=== PATIENT | male | born 1960 | race Two or more races ===

== ENCOUNTER 2022-06-10 04:07 | Inpatient (IN) | payer OTHER ==
[~2022-06-10] VITALS: Ht 177.8 cm; Wt 104.3 kg
--- NOTE | 2022-06-10 04:20 | NUR ---
noemi, from home, c/o high bp 180/100, and chest pressure non-radiating denies pain only discomfort
--- NOTE | 2022-06-10 04:58 | NUR ---
registered dietetic technician at bedside.
--- NOTE | 2022-06-10 05:00 | NUR ---
Dr. Jansen at bedside.
--- NOTE | 2022-06-10 05:03 | NUR ---
Saline lock at L hand G20. Blood drawn and sent to lab.
[2022-06-10] MEDS ORDERED: ASPIRIN EC 325 MG TABLET.DR PO ONE ×2 (05:29→05:30)
[2022-06-10 05:37] LABS: BASOPHILS % (AUTO) 0.6 % (0.0-2.0); EOSINOPHILS % (AUTO) 4.3 % (0.0-6.0); HEMATOCRIT 41 % (39-51); LYMPHOCYTES % (AUTO) 29.8 % (20.0-44.0); MEAN CORPUSCULAR HGB CONC 34 g/dl (31.0-36.0); MEAN CORPUSCULAR VOLUME 92 fL (80-96); MONOCYTES # (AUTO) 0.8 K/uL (0.1-1.30); MONOCYTES % (AUTO) 11.4 % (2.0-12.0); NEUTROPHILS # (AUTO) 3.6 K/uL (1.8-8.9); NEUTROPHILS % (AUTO) 53.9 % (43.0-81.0); PLATELET COUNT (AUTO) 236 K/uL (150-450); RED BLOOD CELL COUNT(AUTO) 4.43 MIL/uL (4.5-6.0); WHITE BLOOD COUNT (AUTO) 6.6 K/uL (4.3-11.0)
[2022-06-10 05:51] LABS: CALCIUM, SERUM 9.7 mg/dL (8.5-10.1); CARBON DIOXIDE 27 mmol/L (21-32); CHLORIDE 104 mmol/L (98-107); CREATININE 1.1 mg/dL (0.6-1.3); GLUCOSE 124 mg/dL (74-106); POTASSIUM 3.8 mmol/L (3.5-5.1); SODIUM SERUM 140 mmol/L (136-145); UREA NITROGEN, BLOOD 19 mg/dL (7-18)
[2022-06-10 08:00] VITALS: BP 173/88
--- NOTE | 2022-06-10 08:25 | NUR ---
BED 107. ADMITTING MADE AWARE.
--- NOTE | 2022-06-10 08:33 | NUR ---
NURSE DELORES WILL CALL TO GET REPORT
[2022-06-10] MEDS ORDERED: BACL10TA PO (08:55)
[2022-06-10] MEDS ORDERED: AMLO-212 PO (08:55)
[2022-06-10] MEDS ORDERED: TRAZ-182 PO (08:55)
--- NOTE | 2022-06-10 08:57 | NUR ---
REPORT GIVEN TO DELORES RYAN
[2022-06-10] MEDS ORDERED: Z GUARD REMEDY 4 OZ OINT TP PRN (10:00)
[2022-06-10] MEDS ORDERED: ONDANSETRON HCL/PF 4 MG/2 ML VIAL IVP PRN (10:00)
[2022-06-10] MEDS ORDERED: ZOLPIDEM TARTRATE 5 MG TABLET PO PRN (10:00)
[2022-06-10] MEDS ORDERED: MAG HYDROX/AL HYDROX/SIMETH 30 ML UDC PO PRN (10:00)
[2022-06-10] MEDS ORDERED: BACLOFEN (10 MG) 10 MG TABLET PO PRN (10:00)
[2022-06-10] MEDS ORDERED: MORPHINE SULFATE INJ 2 MG/ML DISP.SYRIN IV PRN (10:00)
[2022-06-10] MEDS ORDERED: MAGNESIUM HYDROXIDE 30 ML UDC PO PRN (10:00)
--- NOTE | 2022-06-10 10:00 | NUR ---
SCREW MACHINE OPERATOR SINGLE SPINDLE NOTE PT IS ALERT AND ORIENTED X4. PT IS VERBALLY REPSONSIVE AND ABLE TO MAKE NEEDS KNOWN. PT HAS LEFT IV. IV INTACT, PATENT AND FLUSHING WELL. PT IS ON TELE MONITOR SINUS RHYTM. PT IS NOT IN ANY FORM OF PAIN OR DISCOMFORT NOTED AT THIS TIME. PT IS AMBULATORY AND INDEPENDENT. ALL SAFETY MEASURES IN PLACE PER HOSPITAL PROTOCOL.
[2022-06-10] MEDS ORDERED: CLONIDINE HCL 0.1 MG TABLET PO PRN (10:30)
[2022-06-10] MEDS ORDERED: NITROGLYCERIN 0.4 MG/TAB BOTTLE MC PRN (10:30)
[2022-06-10] MEDS: ENOXAPARIN SODIUM 40 MG/0.4 ML DISP.SYRIN SQ SCH (10:50)
--- NOTE | 2022-06-10 11:13 | NUR ---
RN NOTE RECEIVED VERBAL ORDER FROM FOR CHEST PAIN TO GIVE NITROGYLCERIN PRN. PT SAID MEDICATION NOT EFFECTIVE
[2022-06-10 13:00] VITALS: BP 130/78
[2022-06-10] MEDS ORDERED: CT SWABBABLE VALVE TRANS SET 1 EA INFUS.SET MC ONE (15:13)
[2022-06-10] MEDS ORDERED: IV NS 0.9% 250 ML IV ONE (15:13)
[2022-06-10] MEDS ORDERED: IOHEXOL-350 100 ML VIAL IV ONE (15:13)
[2022-06-10] MEDS ORDERED: METOPROLOL TARTRATE INJ 5 MG/5 ML AMPUL ONE ×2 (15:24→15:34)
[2022-06-10] MEDS ORDERED: NITROGLYCERIN 4.9 GM SPRAY ONE (15:25)
[2022-06-10 17:00] VITALS: BP 123/78
--- NOTE | 2022-06-10 19:37 | NUR ---
SUBSTANCE ABUSE NURSE CLOSING NOTE PT IS ALERT AND ORIENTED X4. PT IS VERBALLY RESPONSIVE AND ABLE TO MAKE NEEDS KNOWN. PT HAS LEFT AC 18 GAUGE. IV INTACT, PATENT AND FLUSHING WELL. PT IS ON TELE MONITOR SINUS RHYTHM. PT IS NOT IN ANY FORM OF PAIN OR DISCOMFORT NOTED AT THIS TIME. PT IS AMBULATORY AND INDEPENDENT. ALL SAFETY MEASURES IN PLACE PER HOSPITAL PROTOCOL.
[2022-06-10 21:00] VITALS: BP 146/87
[2022-06-10] MEDS: TRAZODONE 50 MG TABLET PO SCH (21:25)
[2022-06-11 01:00] VITALS: BP 137/84
[2022-06-11 05:00] VITALS: BP 135/82
[2022-06-11 06:08] LABS: BASOPHILS # (AUTO) 0.1 K/uL (0.0-0.2); BASOPHILS % (AUTO) 0.9 % (0.0-2.0); EOSINOPHILS % (AUTO) 4.9 % (0.0-6.0); HEMATOCRIT 43 % (39-51); HEMOGLOBIN 14.4 g/dL (13.5-17.5); LYMPHOCYTES # (AUTO) 2.4 K/uL (0.8-4.8); LYMPHOCYTES % (AUTO) 35.4 % (20.0-44.0); MEAN CORPUSCULAR HGB CONC 34 g/dl (31.0-36.0); MEAN CORPUSCULAR VOLUME 93 fL (80-96); MONOCYTES # (AUTO) 0.7 K/uL (0.1-1.30); MONOCYTES % (AUTO) 10.8 % (2.0-12.0); NEUTROPHILS # (AUTO) 3.2 K/uL (1.8-8.9); PLATELET COUNT (AUTO) 235 K/uL (150-450); WHITE BLOOD COUNT (AUTO) 6.7 K/uL (4.3-11.0)
[2022-06-11 06:32] LABS: CALCIUM, SERUM 9.8 mg/dL (8.5-10.1); CREATININE 1.2 mg/dL (0.6-1.3); MAGNESIUM 1.9 mg/dL (1.8-2.4); POTASSIUM 4.1 mmol/L (3.5-5.1)
--- NOTE | 2022-06-11 07:30 | NUR ---
PRINTING ASSISTANT AM NOTE RECEIVED PATIENT IN BED, ASLEEP, EASILY ROUSES TO NAME AND TOUCH. ALERT AND ORIENTED X 4. AFEBRILE, ABLE TO MAKE NEEDS KNOWN. ROOM AIR. O2 SAT 95%. RESPIRATION UNLABORED. NO ACUTE DISTRESS. SR HR 61 ON MONITOR. DENIES PAIN/DISCOMFORT. IV ACCESS R HAND G20 SL, FLUSHES WELL, SITE CLEAR. NO SKIN ISSUES. AMBULATORY BRP. SAFETY MEASURES IN PLACE. KEPT BED IN LOCKED AND IN LOW POSITION. SIDE RAILS UP X2. ADVISED TO USE THE CALL LIGHT WHEN IN NEED OF ASSISTANCE. POC DISCUSSED. VERBALIZED UNDERSTANDING. WILL CONT TO MONITOR.
[2022-06-11] MEDS: PANTOPRAZOLE 40 MG TABLET.DR PO SCH (07:41)
[2022-06-11] MEDS: ACETAMINOPHEN 325 MG TABLET PO PRN ×2 (07:50→21:42)
[2022-06-11] MEDS: AMLODIPINE BESYLATE 5 MG TABLET PO SCH (08:36)
[2022-06-11 09:00] VITALS: BP 139/87
[2022-06-11] MEDS: ENOXAPARIN SODIUM 40 MG/0.4 ML DISP.SYRIN SQ SCH (09:27)
--- NOTE | 2022-06-11 09:30 | NUR ---
RN NOTES DUE MEDS GIVEN
[2022-06-11] MEDS: ASPIRIN 81 MG TAB.CHEW PO SCH (11:54)
[2022-06-11] MEDS: ATORVASTATIN 40 MG TABLET PO SCH ×2 (11:54→21:39)
[2022-06-11 13:00] VITALS: BP 125/78
--- NOTE | 2022-06-11 16:11 | NUR ---
COOKER CHIP NOTES Patient for transfer to [facility] tomorrow for Angiogram and Rotational Atherectomy at 1430. Ambulance machine operator picker to be arranged by case management at 1130 NPO except meds post midnight Hold Vera Call in for report at 1000 AM at [phone]
[2022-06-11 17:00] VITALS: BP 138/78
--- NOTE | 2022-06-11 18:36 | NUR ---
DATA CONVERSION OPERATOR CLOSING NOTE PATIENT IN BED, RESTING. ALERT AND ORIENTED X 4. AFEBRILE, ABLE TO MAKE NEEDS KNOWN. ROOM AIR. O2 SAT 96%. RESPIRATION UNLABORED. NO ACUTE DISTRESS. SR HR 68 ON MONITOR. DENIES PAIN/DISCOMFORT. IV ACCESS R HAND G20 SL, FLUSHES WELL, SITE CLEAR. NO SKIN ISSUES. AMBULATORY BRP. SAFETY MEASURES IN PLACE. KEPT BED IN LOCKED AND IN LOW POSITION. SIDE RAILS UP X2. ADVISED TO USE THE CALL LIGHT WHEN IN NEED OF ASSISTANCE. POC DISCUSSED. VERBALIZED UNDERSTANDING. ALL NEEDS MET AT THIS TIME. WILL ENDORSE TO NEXT SHIFT FOR ANH. NPO EXCEPT MEDS POST MIDNIGHT. PATIENT FOR FILLING STATION LABORER AT 1130 AM TOMORROW BY AMBULANCE TO TRANSPORT TO [facility] FOR PROCEDURE. PATIENT TO COME BACK TO [facility] POST PROCEDURE IS UNEVENTFUL.
--- NOTE | 2022-06-11 19:45 | NUR ---
TELE1 RN NOTES RECEIVED ON BED A/O 4,BREATHING EASY NO SOB,DENIES CHEST DISCOMFORTS.SALINE LOCK RIGHT HAND INTACT AND PATENT.INSTRUCTED NPO EXCEPT MEDS POST MIDNIGHT,GOING TO [facility] AT 1130AM FOR CTA POSSIBLE ANGIOGRAM,ROTATIONAL ATHERECTOMY BY DR ANDRES, PATIENT AWARE.CALL LIGHT IN REACH,NEEDS ANTICIPATED.
[2022-06-11 21:00] VITALS: BP 144/74
[2022-06-11] MEDS: TRAZODONE 50 MG TABLET PO SCH (21:39)
--- NOTE | 2022-06-11 21:42 | NUR ---
TELE1 RN NOTES C/O OF HEADACHE,TYLENOL 650MG PO GIVEN ORDERED FOR MILD PAIN
[2022-06-12 01:00] VITALS: BP 120/72
[2022-06-12 05:00] VITALS: BP 121/77
--- NOTE | 2022-06-12 06:42 | NUR ---
TELE1 RN NOTES LAYING BED,FAIRLY RESTED.KEPT NPO EXCEPT MEDS POST MIDNIGHT.PAPER WORK READY FOR TRANSFER TO [facility].IN NO ACUTE DISTRESS.BLOOD PRESSURE WITH IN NORMAL LIMITS.
--- NOTE | 2022-06-12 07:35 | NUR ---
RETRIEVAL SPECIALIST OPEN NOTE PATIENT IN BED, RESTING. ALERT AND ORIENTED X 4. AFEBRILE, ABLE TO MAKE NEEDS KNOWN. ROOM AIR. O2 SAT 96%. RESPIRATION UNLABORED. NO ACUTE DISTRESS. SR HR 67 ON MONITOR. DENIES PAIN/DISCOMFORT. IV ACCESS R HAND G20 SL, FLUSHES WELL, SITE CLEAR. NO SKIN ISSUES. AMBULATORY BRP. SAFETY MEASURES IN PLACE. KEPT BED IN LOCKED AND IN LOW POSITION. SIDE RAILS UP X2. ADVISED TO USE THE CALL LIGHT WHEN IN NEED OF ASSISTANCE. POC DISCUSSED. VERBALIZED UNDERSTANDING. ALL NEEDS MET AT THIS TIME. PATIENT IS NPO EXCEPT MEDS POST MIDNIGHT DUE TO GOING TO BE PICKED UP AT 1130 AM BY AMBULANCE TO TRANSPORT TO [facility] FOR PROCEDURE. PATIENT WILL TO COME BACK TO [facility] POST PROCEDURE ID [id number].
[2022-06-12] MEDS: PANTOPRAZOLE 40 MG TABLET.DR PO SCH (07:58)
[2022-06-12 09:00] VITALS: BP 131/80
[2022-06-12] MEDS: ASPIRIN 81 MG TAB.CHEW PO SCH (09:00)
[2022-06-12] MEDS: AMLODIPINE BESYLATE 5 MG TABLET PO SCH (09:00)
--- NOTE | 2022-06-12 09:23 | NUR ---
RN NOTE ASPIRIN AND NORVASC WASN'T ADMINISTERED DUE TO PATIENT IS SCEDULED FOR ANGIOGRAM TODAY AT 11 , AND BP 130/75
--- NOTE | 2022-06-12 18:54 | NUR ---
RN NOTE PATIENT WAS BROUGHT BACK FROM [facility] . REPORT RECEIVED ; PATIENT UNDERWENT CARDIO ANGIOGRAM , RIGHT FEMORAL SIDE COVERED WITH DRESSING .LAST BP 1`56/76 , HR 87 , ON ROOM AIR , RESP 19 , WILL BE BACK TO THE [facility] AFTER 7 PM
--- NOTE | 2022-06-12 20:21 | NUR ---
RN NOTE PT CAME BACK FROM [facility] S/P CORONARY ANGIOGRAM. PT IS A/O X 4, AMBULATORY AND IN STABLE CONDITION. PT DENIES ANY PAIN, NO SOB. BREATHING IS EVEN AND UNLABORED. IV ACCESS ON LFA #20g, PATENT AND INTACT. ALL SAFETY MEASURES IN PLACE: BED LOCKED IN LOW POSITION, SR UP 2, CALL LIGHT WITHIN REACH. WILL CONTINUE TO MONITOR PT.
[2022-06-12 21:00] VITALS: BP 150/94
[2022-06-12] MEDS: TRAZODONE 50 MG TABLET PO SCH (21:02)
[2022-06-12] MEDS: ATORVASTATIN 40 MG TABLET PO SCH (21:02)
[2022-06-12 21:34] VITALS: BP 150/94
[2022-06-13 00:53] VITALS: BP 135/83
[2022-06-13 01:00] VITALS: BP 135/83
[2022-06-13 05:00] VITALS: BP 134/84
[2022-06-13 05:48] VITALS: BP 134/84
--- NOTE | 2022-06-13 06:42 | NUR ---
RN NOTE NO SIGNIFICANT CHANGE T/O THE NIGHT. ALL DUE MEDS GIVEN. NEEDS MET. WILL ENDORSE TO AM SHIFT NURSE FOR ANH.
--- NOTE | 2022-06-13 07:05 | NUR ---
RN OPENING NOTE PATIENT IN BED, RESTING. ALERT AND ORIENTED X 4. AFEBRILE, ABLE TO MAKE NEEDS KNOWN. ROOM AIR. O2 SAT 97%. RESPIRATION UNLABORED. NO ACUTE DISTRESS. DENIES PAIN/DISCOMFORT. IV ACCESS R HAND G20 SL, FLUSHES WELL, SITE CLEAR. NO SKIN ISSUES. AMBULATORY BRP. SAFETY MEASURES IN PLACE. KEPT BED IN LOCKED AND IN LOW POSITION. SIDE RAILS UP X2. ADVISED TO USE THE CALL LIGHT WHEN IN NEED OF ASSISTANCE.
[2022-06-13] MEDS: PANTOPRAZOLE 40 MG TABLET.DR PO SCH (07:30)
[2022-06-13 09:00] VITALS: BP 152/94
[2022-06-13] MEDS: ASPIRIN 81 MG TAB.CHEW PO SCH (09:17)
[2022-06-13] MEDS: AMLODIPINE BESYLATE 5 MG TABLET PO SCH (09:17)
[2022-06-13] MEDS ORDERED: ATOR40TA PO (09:51)
[2022-06-13] MEDS ORDERED: ASPI-1169 PO (09:51)
[2022-06-13 13:00] VITALS: BP 129/82
[2022-06-13] MEDS ORDERED: CLOP75TA15 PO (17:17)
== END 2022-06-13 15:30 | disposition home or self-care (01) | DRG 303 ==
LOC: ER 04:09 → TELE1 08:55
PROVIDERS: ADMIT Internal Medicine; ATTEND Internal Medicine
DX: I25.110 Atherosclerotic heart disease of native coronary artery with unstable angina pectoris (principal); I16.0 Hypertensive urgency; F32.9 Major depressive disorder, single episode, unspecified; G89.29 Other chronic pain; I10 Essential (primary) hypertension; F41.9 Anxiety disorder, unspecified; E66.9 Obesity, unspecified; F17.290 Nicotine dependence, other tobacco product, uncomplicated; Z68.33 Body mass index [BMI] 33.0-33.9, adult; I25.41 Coronary artery aneurysm
CPT/HCPCS: 36415; 71045-TC; 75574; 80048-TC; 83735-TC; 84100-TC; 84484-TC; 85025-TC; 87081-TC; 93307-TC; C9803; G0378; J1650; J3490; J7050; Q9967

== ENCOUNTER 2023-08-23 19:47 | Inpatient (IN) | payer OTHER ==
[~2023-08-23] VITALS: Ht 177.8 cm; Wt 101.6 kg
[~2023-08-23 19:47] MED LIST: AMLO-212 PO; ASPI-1169 PO; ATOR40TA PO; BACL10TA PO; CLOP75TA15 PO; TRAZ-182 PO
[2023-08-23] MEDS ORDERED: ONDANSETRON HCL/PF 4 MG/2 ML VIAL ONE (20:28)
[2023-08-23] MEDS ORDERED: MORPHINE SULFATE INJ 4 MG/ML DISP.SYRIN ONE (20:28)
[2023-08-23 20:48] LABS: BASOPHILS # (AUTO) 0.1 K/uL (0.0-0.2); BASOPHILS % (AUTO) 0.4 % (0.0-2.0); EOSINOPHILS % (AUTO) 0.1 % (0.0-6.0); HEMATOCRIT 42 % (39-51); HEMOGLOBIN 14.5 g/dL (13.5-17.5); LYMPHOCYTES # (AUTO) 1.2 K/uL (0.8-4.8); MEAN CORPUSCULAR HEMOGLOBIN 32 PG (26.0-33.0); MEAN CORPUSCULAR HGB CONC 34 g/dl (31.0-36.0); MEAN CORPUSCULAR VOLUME 93 fL (80-96); MONOCYTES # (AUTO) 1.1 K/uL (0.1-1.30); MONOCYTES % (AUTO) 6.1 % (2.0-12.0); NEUTROPHILS # (AUTO) 15.4 K/uL (1.8-8.9); NEUTROPHILS % (AUTO) 86.4 % (43.0-81.0); PLATELET COUNT (AUTO) 254 K/uL (150-450); RED BLOOD CELL COUNT(AUTO) 4.53 MIL/uL (4.5-6.0); RED CELL DISTRIBUTION WIDTH 12.9 % (11.5-15.0); WHITE BLOOD COUNT (AUTO) 17.8 K/uL (4.3-11.0)
[2023-08-23] MEDS: ONDANSETRON HCL/PF 4 MG/2 ML VIAL IVP ONE (21:20)
[2023-08-23] MEDS: IV NS 0.9% 1,000 ML BAG IV ONE (21:20)
[2023-08-23] MEDS: MORPHINE SULFATE INJ 2 MG/ML DISP.SYRIN IV ONE (21:20)
[2023-08-23 21:35] LABS: ALBUMIN 3.7 g/dL (3.4-5.0); BILIRUBIN,DIRECT 0.4 mg/dL (0.0-0.2); BILIRUBIN,TOTAL 1.7 mg/dL (0.2-1.0); CALCIUM, SERUM 8.7 mg/dL (8.5-10.1); CREATININE 1.2 mg/dL (0.6-1.3); POTASSIUM 3.9 mmol/L (3.5-5.1); TOTAL PROTEIN, SERUM 6.9 g/dL (6.4-8.2)
[2023-08-23] MEDS ORDERED: CT SWABBABLE VALVE TRANS SET 1 EA INFUS.SET MC ONE (21:53)
[2023-08-23] MEDS ORDERED: IV NS 0.9% 250 ML IV ONE (21:53)
[2023-08-23] MEDS ORDERED: IOHEXOL-300 100 ML VIAL IV ONE (21:53)
[2023-08-23] MEDS ORDERED: PIPERACI/TAZO 3.375GM/D5W 50ML PB IV ONE (21:58)
[2023-08-23] MEDS ORDERED: PIPERACILLIN /TAZOBACTAM 3.375 G in IV D5W 50 ML IV ONE (22:00)
[2023-08-23] MEDS: PIPERACILLIN /TAZOBACTAM 3.375 G in IV D5W 50 ML IV ONE (22:03)
[2023-08-23 22:37] LABS: LACTIC ACID 2.6 mmol/L (0.4-2.0)
[2023-08-23] MEDS ORDERED: METRONIDAZOLE 500MG/ NS 100ML 100 ML IV ONE (23:47)
[2023-08-23] MEDS: FLAGYL/NS RTU 500 MG/100 ML PIGGYBACK IV ONE (23:51)
[2023-08-24] MEDS ORDERED: ACETAMINOPHEN 325 MG TABLET PO PRN (04:30)
[2023-08-24] MEDS ORDERED: ONDANSETRON HCL/PF 4 MG/2 ML VIAL IVP PRN (04:30)
[2023-08-24] MEDS ORDERED: MORPHINE SULFATE INJ 2 MG/ML DISP.SYRIN IV PRN (04:30)
[2023-08-24] MEDS ORDERED: Z GUARD REMEDY 4 OZ OINT TP PRN (04:30)
[2023-08-24] MEDS ORDERED: PIPERACILLIN /TAZOBACTAM 3.375 G in IV D5W 50 ML IV SCH (05:00)
[2023-08-24] MEDS: ZOSYN IVPB 3.375 G in IV D5W 50ml IV SCH (08:24)
[2023-08-24] MEDS ORDERED: PANTOPRAZOLE 40 MG VIAL ONE (08:51)
[2023-08-24] MEDS: PANTOPRAZOLE 40 MG VIAL IV SCH (08:57)
[2023-08-24] MEDS ORDERED: LOSA100T31 PO (09:16)
[2023-08-24] MEDS ORDERED: ATOR40TA PO (09:16)
[2023-08-24] MEDS ORDERED: ASPI-1169 PO (09:16)
[2023-08-24 11:15] LABS: BASOPHILS % (AUTO) 0.3 % (0.0-2.0); EOSINOPHILS # (AUTO) 0.1 K/uL (0.0-0.7); EOSINOPHILS % (AUTO) 1.2 % (0.0-6.0); HEMATOCRIT 44 % (39-51); HEMOGLOBIN 14.5 g/dL (13.5-17.5); LYMPHOCYTES # (AUTO) 1.7 K/uL (0.8-4.8); LYMPHOCYTES % (AUTO) 13.5 % (20.0-44.0); MEAN CORPUSCULAR HEMOGLOBIN 32 PG (26.0-33.0); MEAN CORPUSCULAR HGB CONC 33 g/dl (31.0-36.0); MEAN CORPUSCULAR VOLUME 95 fL (80-96); MONOCYTES # (AUTO) 0.9 K/uL (0.1-1.30); NEUTROPHILS # (AUTO) 9.7 K/uL (1.8-8.9); PLATELET COUNT (AUTO) 248 K/uL (150-450); RED BLOOD CELL COUNT(AUTO) 4.56 MIL/uL (4.5-6.0); RED CELL DISTRIBUTION WIDTH 12.7 % (11.5-15.0); WHITE BLOOD COUNT (AUTO) 12.4 K/uL (4.3-11.0)
[2023-08-24] MEDS: IV D5/0.45 NACL 1,000 ML IV PRN (15:46)
[2023-08-24 16:00] VITALS: BP 153/81; TEMP 99.7; O2SAT 94
[2023-08-24 17:17] LABS: CALCIUM, SERUM 8.7 mg/dL (8.5-10.1); CREATININE 1.1 mg/dL (0.6-1.3); POTASSIUM 3.8 mmol/L (3.5-5.1)
[2023-08-24 17:23] LABS: ALBUMIN 3.8 g/dL (3.4-5.0); BILIRUBIN,DIRECT 0.4 mg/dL (0.0-0.2); BILIRUBIN,TOTAL 2.2 mg/dL (0.2-1.0); TOTAL PROTEIN, SERUM 7.3 g/dL (6.4-8.2)
[2023-08-25 00:03] VITALS: BP 143/67; TEMP 98.7; O2SAT 94
[2023-08-25 06:51] LABS: BASOPHILS % (AUTO) 0.2 % (0.0-2.0); EOSINOPHILS # (AUTO) 0.2 K/uL (0.0-0.7); EOSINOPHILS % (AUTO) 1.6 % (0.0-6.0); HEMATOCRIT 40 % (39-51); HEMOGLOBIN 13.6 g/dL (13.5-17.5); LYMPHOCYTES # (AUTO) 1.4 K/uL (0.8-4.8); LYMPHOCYTES % (AUTO) 10.9 % (20.0-44.0); MEAN CORPUSCULAR HEMOGLOBIN 32 PG (26.0-33.0); MEAN CORPUSCULAR HGB CONC 34 g/dl (31.0-36.0); MEAN CORPUSCULAR VOLUME 94 fL (80-96); MONOCYTES # (AUTO) 1.3 K/uL (0.1-1.30); MONOCYTES % (AUTO) 10.1 % (2.0-12.0); NEUTROPHILS # (AUTO) 9.9 K/uL (1.8-8.9); NEUTROPHILS % (AUTO) 77.2 % (43.0-81.0); PLATELET COUNT (AUTO) 221 K/uL (150-450); RED BLOOD CELL COUNT(AUTO) 4.21 MIL/uL (4.5-6.0); RED CELL DISTRIBUTION WIDTH 12.9 % (11.5-15.0); WHITE BLOOD COUNT (AUTO) 12.8 K/uL (4.3-11.0)
[2023-08-25 07:05] LABS: CALCIUM, SERUM 8.4 mg/dL (8.5-10.1); CREATININE 1.2 mg/dL (0.6-1.3); MAGNESIUM 2.1 mg/dL (1.8-2.4); PHOSPHORUS 3.1 mg/dL (2.5-4.9); POTASSIUM 3.8 mmol/L (3.5-5.1)
[2023-08-25 07:11] LABS: THYROID STIMULATING HORMONE 1.346 uIU/mL (0.358-3.74)
[2023-08-25 08:00] VITALS: BP 135/84; TEMP 98.1; O2SAT 95
[2023-08-25 10:47] LABS: ALBUMIN 3.2 g/dL (3.4-5.0); BILIRUBIN,DIRECT 0.3 mg/dL (0.0-0.2); BILIRUBIN,TOTAL 1.7 mg/dL (0.2-1.0); TOTAL PROTEIN, SERUM 6.6 g/dL (6.4-8.2)
[2023-08-25] MEDS: PIPERACILLIN /TAZOBACTAM 3.375 G in IV D5W 100 ML IV SCH (13:50)
[2023-08-25 16:00] VITALS: BP 138/95; TEMP 98.2; O2SAT 95
[2023-08-25 20:00] VITALS: BP 136/86; TEMP 98.2; O2SAT 96
[2023-08-26] VITALS: BP 132/78; TEMP 97.8; O2SAT 97
[2023-08-26 07:59] LABS: CALCIUM, SERUM 8.9 mg/dL (8.5-10.1); CREATININE 1.2 mg/dL (0.6-1.3); PHOSPHORUS 3.6 mg/dL (2.5-4.9); POTASSIUM 4.2 mmol/L (3.5-5.1)
[2023-08-26 08:00] VITALS: BP 150/92; TEMP 97; O2SAT 97
[2023-08-26 08:07] LABS: BASOPHILS % (AUTO) 0.3 % (0.0-2.0); EOSINOPHILS # (AUTO) 0.4 K/uL (0.0-0.7); EOSINOPHILS % (AUTO) 3.5 % (0.0-6.0); HEMATOCRIT 41 % (39-51); HEMOGLOBIN 13.8 g/dL (13.5-17.5); LYMPHOCYTES # (AUTO) 1.6 K/uL (0.8-4.8); LYMPHOCYTES % (AUTO) 15.7 % (20.0-44.0); MEAN CORPUSCULAR HEMOGLOBIN 32 PG (26.0-33.0); MEAN CORPUSCULAR HGB CONC 34 g/dl (31.0-36.0); MEAN CORPUSCULAR VOLUME 94 fL (80-96); MONOCYTES # (AUTO) 1.2 K/uL (0.1-1.30); MONOCYTES % (AUTO) 11.8 % (2.0-12.0); NEUTROPHILS % (AUTO) 68.7 % (43.0-81.0); PLATELET COUNT (AUTO) 239 K/uL (150-450); RED BLOOD CELL COUNT(AUTO) 4.31 MIL/uL (4.5-6.0); RED CELL DISTRIBUTION WIDTH 12.6 % (11.5-15.0); WHITE BLOOD COUNT (AUTO) 10.2 K/uL (4.3-11.0)
[2023-08-26 08:46] LABS: ALBUMIN 3.2 g/dL (3.4-5.0); BILIRUBIN,DIRECT 0.2 mg/dL (0.0-0.2); TOTAL PROTEIN, SERUM 7.1 g/dL (6.4-8.2)
[2023-08-26] MEDS ORDERED: LEVO500T90 PO (11:07)
[2023-08-26] MEDS ORDERED: HYDR-4303 PO (11:08)
[2023-08-27] MEDS ORDERED: PANTOPRAZOLE 40 MG TABLET.DR PO SCH (09:00)
== END 2023-08-26 14:10 | disposition home or self-care (01) | DRG 872 ==
LOC: ER 20:10 → TRANSITION 08-24 05:00 → MEDSG1 08-24 12:38
PROVIDERS: ADMIT Nurse Practitioner Acute Care; ATTEND Internal Medicine
DX: A41.9 Sepsis, unspecified organism (principal); K57.32 Diverticulitis of large intestine without perforation or abscess without bleeding; F32.A Depression, unspecified; I10 Essential (primary) hypertension; G89.29 Other chronic pain; Z79.02 Long term (current) use of antithrombotics/antiplatelets; Z79.82 Long term (current) use of aspirin; Z79.899 Other long term (current) drug therapy; R74.01 Elevation of levels of liver transaminase levels; E80.6 Other disorders of bilirubin metabolism
CPT/HCPCS: 36415; 76705-TC; 80048-TC; 80076-TC; 83605-TC; 83690-TC; 83735-TC; 84100-TC; 84443-TC; 85025-TC; 87040-TC; A4223; C9113; G0378; J2270; J2405; J2543; J3490; J7030; J7040; J7050; J7060; Q9967

== ENCOUNTER 2023-12-07 08:31 | Inpatient (IN) | payer OTHER ==
[2023-12-07] VITALS (7 sets, daily range): BP systolic 129–147; BP diastolic 76–81; TEMP 98.9–102.9; O2SAT 90–97
[~2023-12-07] VITALS: Ht 177.8 cm; Wt 96.6 kg
[~2023-12-07 08:31] MED LIST changes: -BACL10TA PO; -CLOP75TA15 PO; +HYDR-4303 PO; +LEVO500T90 PO; +LOSA100T31 PO
[2023-12-07] MEDS: IV NS 0.9% 1,000 ML BAG IV ONE (10:05)
[2023-12-07] MEDS ORDERED: MORPHINE SULFATE INJ 4 MG/ML DISP.SYRIN ONE (10:31)
[2023-12-07] MEDS ORDERED: ONDANSETRON HCL/PF 4 MG/2 ML VIAL ONE (10:31)
[2023-12-07 10:32] LABS: BASOPHILS % (AUTO) 0.1 % (0.0-2.0); EOSINOPHILS % (AUTO) 0.1 % (0.0-6.0); HEMATOCRIT 43 % (39-51); HEMOGLOBIN 14.1 g/dL (13.5-17.5); LYMPHOCYTES # (AUTO) 0.9 K/uL (0.8-4.8); LYMPHOCYTES % (AUTO) 5.4 % (20.0-44.0); MEAN CORPUSCULAR HEMOGLOBIN 31 PG (26.0-33.0); MEAN CORPUSCULAR HGB CONC 33 g/dl (31.0-36.0); MEAN CORPUSCULAR VOLUME 93 fL (80-96); MONOCYTES # (AUTO) 0.8 K/uL (0.1-1.30); NEUTROPHILS # (AUTO) 14.9 K/uL (1.8-8.9); NEUTROPHILS % (AUTO) 89.4 % (43.0-81.0); PLATELET COUNT (AUTO) 223 K/uL (150-450); RED BLOOD CELL COUNT(AUTO) 4.58 MIL/uL (4.5-6.0); RED CELL DISTRIBUTION WIDTH 12.7 % (11.5-15.0); WHITE BLOOD COUNT (AUTO) 16.7 K/uL (4.3-11.0)
[2023-12-07] MEDS: ONDANSETRON HCL/PF 4 MG/2 ML VIAL IVP ONE (10:34)
[2023-12-07] MEDS: MORPHINE SULFATE INJ 2 MG/ML DISP.SYRIN IV ONE (10:34)
[2023-12-07 10:40] LABS: CALCIUM, SERUM 9.8 mg/dL (8.5-10.1); CARBON DIOXIDE 26 mmol/L (21-32); CHLORIDE 102 mmol/L (98-107); CREATININE 1.1 mg/dL (0.6-1.3); GLUCOSE 126 mg/dL (74-106); SODIUM SERUM 136 mmol/L (136-145); UREA NITROGEN, BLOOD 16 mg/dL (7-18)
[2023-12-07 10:46] LABS: ALANINE AMINOTRANSFERASE 14 U/L (12-78); ALBUMIN 3.4 g/dL (3.4-5.0); ALKALINE PHOSPHATASE 49 U/L (46-116); ASPARTATE AMINOTRANSFERASE < 5 U/L (15-37); BILIRUBIN,DIRECT 0.3 mg/dL (0.0-0.2); BILIRUBIN,TOTAL 2.3 mg/dL (0.2-1.0); LIPASE 23 U/L (16-77)
[2023-12-07 10:54] LABS: APPEARANCE,URINE CLEAR (CLEAR); BILIRUBIN,URINE NEGATIVE (NEGATIVE); BLOOD, URINE NEGATIVE Ery/uL (NEGATIVE); COLOR,URINE YELLOW (YELLOW); KETONES,URINE NEGATIVE (NEGATIVE); LEUKOCYTE ESTERASE ,URINE NEGATIVE (NEGATIVE); NITRITE, URINE NEGATIVE (NEGATIVE); PROTEIN,URINE 2+ mg/dl (NEGATIVE); UGLUCOSE NEGATIVE (NEGATIVE); UROBILINOGEN,URINE 0.2 EU/dL (0.2)
[2023-12-07] MEDS ORDERED: PIPERACI/TAZO 3.375GM/D5W 50ML PB IV ONE (11:10)
[2023-12-07] MEDS: PIPERACILLIN /TAZOBACTAM 3.375 G in IV D5W 50 ML IV ONE (11:16)
[2023-12-07 11:23] LABS: ADD URINE CULTURE NO; BACTERIA,URINE None seen /HPF (None Seen); MUCUS,URINE Moderate /LPF (None Seen); RBC,URINE NONE SEEN /HPF (0-2); SQUAMOUS EPITHELIAL CELL,UR None Seen /HPF (None Seen); WBC,URINE NONE SEEN /HPF (0-3)
[2023-12-07] MEDS ORDERED: IOHEXOL-300 100 ML VIAL IV ONE (11:47)
[2023-12-07 13:32] LABS: INR 1.12 (0.91-1.10); PARTIAL THROMBOPLASTIN TIME 28.5 SEC (24.3-34.3); PROTHROMBIN TIME 11.8 SECS (9.2-11.1)
[2023-12-07] MEDS ORDERED: MORPHINE SULFATE INJ 2 MG/ML DISP.SYRIN IV PRN (14:00)
[2023-12-07] MEDS ORDERED: ONDANSETRON HCL/PF 4 MG/2 ML VIAL IVP PRN (14:00)
[2023-12-07] MEDS: IV NS 0.9% 1,000 ML IV SCH (14:00)
[2023-12-07] MEDS ORDERED: hydrALAZINE HCL IV 20 MG VIAL IV PRN (14:00)
[2023-12-07] MEDS ORDERED: ACETAMINOPHEN 325 MG TABLET PO PRN (14:00)
[2023-12-07] MEDS ORDERED: TRAZODONE 50 MG TABLET PO PRN (17:30)
[2023-12-07] MEDS ORDERED: BACITRACIN ZINC OINT (15 GM) 15 GM TUBE TP ONE (17:36)
[2023-12-07] MEDS ORDERED: BUPIVACAINE 0.5 % PF 150 MG/30 ML VIAL ONE (17:36)
[2023-12-07] MEDS ORDERED: LIDOCAINE 1%-EPI 1:100,000 20 ML VIAL ONE (17:36)
[2023-12-07] MEDS ORDERED: ANESTHESIA TRAY IN PYXIS 1 EA TRAY MC ONE (17:36)
[2023-12-07] MEDS ORDERED: Medication Not On Formulary EA (Losartan Potassium 100 MG) PO SCH (18:00)
[2023-12-07] MEDS ORDERED: ROCURONIUM BROMIDE 50 MG/5 ML ONE ×2 (18:19→19:00)
[2023-12-07] MEDS ORDERED: VASOPRESSIN INJ 20 UNIT/ML VIAL ONE (18:19)
[2023-12-07] MEDS ORDERED: HYDROMORPHONE INJ 2 MG/ML DISP.SYRIN ONE (18:19)
[2023-12-07] MEDS ORDERED: ALBUMIN 5% 250 ML IV ONE (18:19)
[2023-12-07] MEDS ORDERED: FENTANYL PF 100MCG/2ML AMPUL ONE (18:19)
[2023-12-07] MEDS: ATORVASTATIN 40 MG TABLET PO SCH (22:00)
[2023-12-07] MEDS: LOSARTAN POTASSIUM 50 MG TABLET PO SCH (22:00)
[2023-12-07] MEDS: IV LR 1000 ML 1,000 ML IV SCH (22:11)
[2023-12-07] MEDS: CEFEPIME 2 GM in IV D5W 100 ML IV SCH (22:11)
[2023-12-07] MEDS: IV NS 0.9% 250 ML IV PRN (22:11)
[2023-12-07] MEDS: PANTOPRAZOLE 40 MG VIAL IV SCH (22:14)
[2023-12-08] VITALS (16 sets, daily range): BP systolic 110–140; BP diastolic 66–89; TEMP 97.7–99.3; O2SAT 90–97
[2023-12-08] MEDS: PIPERACILLIN /TAZOBACTAM 3.375 G in IV D5W 50 ML IV ONE (00:16)
[2023-12-08] MEDS: PIPERACI/TAZO 3.375GM/D5W 50ML PB IV ONE ×2 (00:36→06:29)
[2023-12-08 05:04] LABS: BASOPHILS % (AUTO) 0.2 % (0.0-2.0); HEMATOCRIT 36 % (39-51); HEMOGLOBIN 12.1 g/dL (13.5-17.5); LYMPHOCYTES # (AUTO) 0.6 K/uL (0.8-4.8); LYMPHOCYTES % (AUTO) 4.2 % (20.0-44.0); MEAN CORPUSCULAR HEMOGLOBIN 32 PG (26.0-33.0); MEAN CORPUSCULAR HGB CONC 34 g/dl (31.0-36.0); MEAN CORPUSCULAR VOLUME 94 fL (80-96); MONOCYTES # (AUTO) 0.6 K/uL (0.1-1.30); MONOCYTES % (AUTO) 4.1 % (2.0-12.0); NEUTROPHILS # (AUTO) 13.8 K/uL (1.8-8.9); NEUTROPHILS % (AUTO) 91.5 % (43.0-81.0); PLATELET COUNT (AUTO) 170 K/uL (150-450); RED CELL DISTRIBUTION WIDTH 12.8 % (11.5-15.0)
[2023-12-08 05:59] LABS: ALBUMIN 2.5 g/dL (3.4-5.0); BILIRUBIN,TOTAL 1.6 mg/dL (0.2-1.0); CALCIUM, SERUM 8.6 mg/dL (8.5-10.1); CREATININE 1.1 mg/dL (0.6-1.3); MAGNESIUM 1.7 mg/dL (1.8-2.4); POTASSIUM 4.3 mmol/L (3.5-5.1); TOTAL PROTEIN, SERUM 5.9 g/dL (6.4-8.2)
[2023-12-08] MEDS: PIPERACILLIN /TAZOBACTAM 3.375 G in IV D5W 50 ML IV SCH (06:36)
[2023-12-08] MEDS: Magnesium 1GM/D5W 100ML PREMIX 100 ML IV SCH ×2 (07:21→09:23)
[2023-12-08] MEDS: AMLODIPINE BESYLATE 5 MG TABLET PO SCH (08:42)
[2023-12-08] MEDS: ASPIRIN 81 MG TAB.CHEW PO SCH (08:42)
[2023-12-08] MEDS: HYDROMORPHONE 1 MG/1 ML DISP.SYRIN IV PRN (12:59)
[2023-12-08] MEDS: IV LR 1000 ML 1,000 ML IV PRN (18:17)
[2023-12-08] MEDS: HEPARIN SODIUM, PORCINE 5000 UNITS/1 ML VIAL SQ SCH (21:00)
[2023-12-09] VITALS (7 sets, daily range): BP systolic 129–154; BP diastolic 72–81; TEMP 97.8–99.1; O2SAT 92–94
[2023-12-09 06:59] LABS: HEMATOCRIT 36 % (39-51); LYMPHOCYTES % (AUTO) 6.7 % (20.0-44.0); MEAN CORPUSCULAR HEMOGLOBIN 32 PG (26.0-33.0); MEAN CORPUSCULAR HGB CONC 34 g/dl (31.0-36.0); MEAN CORPUSCULAR VOLUME 94 fL (80-96); MONOCYTES # (AUTO) 1.1 K/uL (0.1-1.30); MONOCYTES % (AUTO) 7.1 % (2.0-12.0); NEUTROPHILS # (AUTO) 12.8 K/uL (1.8-8.9); NEUTROPHILS % (AUTO) 86.2 % (43.0-81.0); PLATELET COUNT (AUTO) 197 K/uL (150-450); RED BLOOD CELL COUNT(AUTO) 3.78 MIL/uL (4.5-6.0); RED CELL DISTRIBUTION WIDTH 12.9 % (11.5-15.0); WHITE BLOOD COUNT (AUTO) 14.9 K/uL (4.3-11.0)
[2023-12-09 07:01] LABS: CALCIUM, SERUM 9.5 mg/dL (8.5-10.1); MAGNESIUM 2.2 mg/dL (1.8-2.4); PHOSPHORUS 2.5 mg/dL (2.5-4.9); POTASSIUM 4.3 mmol/L (3.5-5.1)
[2023-12-10] VITALS: BP 124/73; TEMP 98.4; O2SAT 95
[2023-12-10 04:00] VITALS: BP 135/85; TEMP 99; O2SAT 95
[2023-12-10 08:04] VITALS: BP 150/86; TEMP 97.9; O2SAT 92
[2023-12-10] MEDS: PHENAZOPYRIDINE HCL 200 MG TABLET PO PRN (08:07)
[2023-12-10 08:29] VITALS: O2SAT 94
[2023-12-10 09:04] LABS: CREATININE 0.9 mg/dL (0.6-1.3); MAGNESIUM 2.1 mg/dL (1.8-2.4); POTASSIUM 4.1 mmol/L (3.5-5.1)
[2023-12-10] MEDS ORDERED: HYDROCODONE/APAP 5/325MG TABLET PO PRN (19:00)
[2023-12-10 20:00] VITALS: BP 139/81; TEMP 98.4; O2SAT 94
[2023-12-10] MEDS: KETOROLAC TROMETHAMINE 15 MG/ML VIAL IV PRN (21:50)
[2023-12-11 06:47] LABS: BASOPHILS % (AUTO) 0.3 % (0.0-2.0); EOSINOPHILS # (AUTO) 0.5 K/uL (0.0-0.7); EOSINOPHILS % (AUTO) 4.2 % (0.0-6.0); HEMATOCRIT 40 % (39-51); HEMOGLOBIN 13.4 g/dL (13.5-17.5); LYMPHOCYTES # (AUTO) 1.4 K/uL (0.8-4.8); LYMPHOCYTES % (AUTO) 12.8 % (20.0-44.0); MEAN CORPUSCULAR HEMOGLOBIN 32 PG (26.0-33.0); MEAN CORPUSCULAR HGB CONC 34 g/dl (31.0-36.0); MEAN CORPUSCULAR VOLUME 94 fL (80-96); MONOCYTES # (AUTO) 1.3 K/uL (0.1-1.30); MONOCYTES % (AUTO) 11.8 % (2.0-12.0); NEUTROPHILS % (AUTO) 70.9 % (43.0-81.0); PLATELET COUNT (AUTO) 279 K/uL (150-450); RED BLOOD CELL COUNT(AUTO) 4.26 MIL/uL (4.5-6.0); RED CELL DISTRIBUTION WIDTH 12.4 % (11.5-15.0); WHITE BLOOD COUNT (AUTO) 11.3 K/uL (4.3-11.0)
[2023-12-11 07:25] LABS: CALCIUM, SERUM 9.9 mg/dL (8.5-10.1); CREATININE 0.9 mg/dL (0.6-1.3); MAGNESIUM 2.1 mg/dL (1.8-2.4); PHOSPHORUS 5.1 mg/dL (2.5-4.9); POTASSIUM 3.9 mmol/L (3.5-5.1)
[2023-12-11 08:00] VITALS: BP 155/66; TEMP 98.4; O2SAT 96
[2023-12-11] MEDS ORDERED: CIPR-262 PO (10:19)
[2023-12-11] MEDS ORDERED: METR500T PO (10:19)
[2023-12-11 16:00] VITALS: BP 108/81; TEMP 98.4; O2SAT 96
== END 2023-12-11 18:45 | DRG 853 ==
LOC: ER 08:35 → MED 16:25 → ICU 21:29 → MED 12-08 12:29 → TELE 12-08 15:09 → MED 12-10 11:53
PROVIDERS: ADMIT Internal Medicine; ATTEND Internal Medicine
PROC: 0DBN0ZZ Excision of Sigmoid Colon, Open Approach (ICD-10-PCS; principal; 2023-12-07)
PROC: 0D1K0Z4 Bypass Ascending Colon to Cutaneous, Open Approach (ICD-10-PCS; 2023-12-07)
PROC: 0DNU0ZZ Release Omentum, Open Approach (ICD-10-PCS; 2023-12-07)
DX: A41.9 Sepsis, unspecified organism (principal); K65.1 Peritoneal abscess; K57.20 Diverticulitis of large intestine with perforation and abscess without bleeding; K66.0 Peritoneal adhesions (postprocedural) (postinfection); Z20.822 Contact with and (suspected) exposure to COVID-19; I10 Essential (primary) hypertension; E78.5 Hyperlipidemia, unspecified; K82.8 Other specified diseases of gallbladder; G89.29 Other chronic pain; F32.A Depression, unspecified; Z79.82 Long term (current) use of aspirin; Z79.899 Other long term (current) drug therapy; Z98.1 Arthrodesis status
CPT/HCPCS: 36415; 71045-TC; 80048-TC; 80053-TC; 80076-TC; 81001; 83605-TC; 83690-TC; 83735-TC; 84100-TC; 85025-TC; 85730-TC; 86850-TC; 87040-TC; 87081-TC; 88307-TC; 94799-TC; 97110-TC; 97530-TC; A4223; A6253; A6403; G0378; J0330; J0690; J0692; J1100; J1170; J1644; J1885; J2270; J2405; J2470; J2543; J2704; J2765; J3010; J3475; J3490; J7030; J7050; J7060; J7120; P9045; Q9967

== ENCOUNTER 2024-07-22 20:12 | Emergency (ER) | payer OTHER ==
[~2024-07-22] VITALS: Ht 175.3 cm; Wt 104.3 kg
[~2024-07-22 20:12] MED LIST changes: +CIPR-262 PO; -HYDR-4303 PO; -LEVO500T90 PO; +METR500T PO
[2024-07-22 20:59] LABS: BASOPHILS % (AUTO) 0.5 % (0.0-2.0); EOSINOPHILS # (AUTO) 0.3 K/uL (0.0-0.7); EOSINOPHILS % (AUTO) 3.6 % (0.0-6.0); HEMATOCRIT 46 % (39-51); HEMOGLOBIN 15.7 g/dL (13.5-17.5); LYMPHOCYTES % (AUTO) 23.4 % (20.0-44.0); MEAN CORPUSCULAR HEMOGLOBIN 31 PG (26.0-33.0); MEAN CORPUSCULAR HGB CONC 34 g/dl (31.0-36.0); MEAN CORPUSCULAR VOLUME 92 fL (80-96); MONOCYTES # (AUTO) 1.2 K/uL (0.1-1.30); MONOCYTES % (AUTO) 13.8 % (2.0-12.0); NEUTROPHILS # (AUTO) 4.9 K/uL (1.8-8.9); NEUTROPHILS % (AUTO) 58.7 % (43.0-81.0); PLATELET COUNT (AUTO) 217 K/uL (150-450); RED BLOOD CELL COUNT(AUTO) 5.04 MIL/uL (4.5-6.0); RED CELL DISTRIBUTION WIDTH 12.8 % (11.5-15.0); WHITE BLOOD COUNT (AUTO) 8.4 K/uL (4.3-11.0)
[2024-07-22] MEDS: IV NS 0.9% 1,000 ML BAG IV ONE (21:01)
[2024-07-22 21:12] LABS: CALCIUM, SERUM 9.7 mg/dL (8.5-10.1); CREATININE 1.2 mg/dL (0.6-1.3)
[2024-07-22 21:19] LABS: ALBUMIN 4.2 g/dL (3.4-5.0); BILIRUBIN,DIRECT 0.1 mg/dL (0.0-0.2); BILIRUBIN,TOTAL 0.6 mg/dL (0.2-1.0); TOTAL PROTEIN, SERUM 7.1 g/dL (6.4-8.2)
[2024-07-22 23:47] VITALS: BP 130/85; TEMP 98.1; O2SAT 99
== END 2024-07-22 23:48 | disposition home or self-care (01) ==
LOC: ER 20:25
DX: R10.84 Generalized abdominal pain (principal); R42 Dizziness and giddiness; I10 Essential (primary) hypertension; Z93.3 Colostomy status; Z79.82 Long term (current) use of aspirin; Z79.899 Other long term (current) drug therapy
CPT/HCPCS: 36415; 80048-TC; 80076-TC; 83690-TC; 85025-TC